=== PATIENT | male | born 1965 | race Caucasian/White ===

== ENCOUNTER 2021-06-08 12:13 | Emergency (ER) | payer MEDICAID ==
[~2021-06-08] VITALS: Ht 165.1 cm; Wt 75.0 kg
[2021-06-08] MEDS ORDERED: IBUPROFEN 600MG TABLET PO ONE (13:45)
[2021-06-08 13:48] VITALS: BP 148/96
[2021-06-08] MEDS ORDERED: NAPR-681 MT (13:50)
== END 2021-06-08 13:55 | disposition home or self-care (01) ==
LOC: ER 12:13
DX: S63.616A Unspecified sprain of right little finger, initial encounter (principal); E11.9 Type 2 diabetes mellitus without complications; W10.0XXA Fall (on)(from) escalator, initial encounter; Y93.89 Activity, other specified; Y92.89 Other specified places as the place of occurrence of the external cause; Y99.8 Other external cause status
CPT/HCPCS: 73140; 99283